=== PATIENT | female | born 1960 | race Caucasian/White ===

== ENCOUNTER 2019-03-13 11:57 | Emergency (ER) | payer OTHER ==
[2019-03-13 13:16] LABS: BASO % 0.5 % (0.0-2.0); EOS % 0.4 % (0.0-4.0); HEMOGLOBIN 13.6 g/dL (11.0-16.0); LYMPH # 1.9 K/uL (1.0-4.3); LYMPH % 28.1 % (20.0-40.0); MEAN CELL VOLUME 83.9 fL (81.0-99.0); MEAN CORPUSCULAR HEMOGLOBIN 28.2 pg (27.0-31.0); MEAN CORPUSCULAR HGB CONC 33.6 g/dL (33.0-37.0); MEAN PLATELET VOLUME 8.9 fL (7.2-11.7); MONO # 0.4 K/uL (0.0-0.8); MONO % 5.2 % (0.0-10.0); NEUT # 4.5 K/uL (1.8-7.0); NEUT % 65.8 % (50.0-75.0); RBC 4.83 Mil/uL (3.80-5.20); RED CELL DISTRIBUTION WIDTH 13.8 % (11.5-14.5); WHITE BLOOD COUNT 6.8 K/uL (4.8-10.8)
--- NOTE | 2019-03-13 13:19 | RAD ---
Date of service: 03/13/2019 PROCEDURE: CHEST RADIOGRAPH, 1 VIEW HISTORY: chest pain COMPARISON: None available. FINDINGS: LUNGS: The lungs are well inflated and clear. PLEURA: No pneumothorax or pleural effusion. CARDIOVASCULAR: The heart is normal in size. There are aortic atherosclerotic calcifications present. OSSEOUS STRUCTURES: Within normal limits for the patient's age. VISUALIZED UPPER ABDOMEN: Normal. OTHER FINDINGS: None. IMPRESSION: No active pulmonary disease.
[2019-03-13 14:57] LABS: ALB/GLOB RATIO 1.4 (1.0-2.1); ALBUMIN 4.4 g/dL (3.5-5.0); ALT/SGPT 36 U/L (9-52); AST/SGOT 33 U/L (14-36); BLOOD UREA NITROGEN 18 mg/dL (7-17); CALCIUM 9.5 mg/dl (8.6-10.4); GFR NON-AFRICAN AMERICAN > 60
[2019-03-13 15:06] VITALS: O2SAT 100
[2019-03-13 15:26] LABS: T3 1.58 nmol/L (1.49-2.60)
[2019-03-13 16:46] VITALS: BP 145/77; PULSE 68; RESP 18; TEMP 98
--- NOTE | 2019-03-13 17:17 | C.PDOC ---
History Of Present Illness 58-year-old female presents to the ED for evaluation of "neck spasms/palpitations" which began around one week ago. Patient states she is currently asymptomatic and denies fever, chills, chest pain, shortness of breath and cough. Chief Complaint (Nursing): Palpitations History Per: Patient History/Exam Limitations: no limitations Onset/Duration Of Symptoms: Hrs Current Symptoms Are (Timing): Still Present Past Medical History Reviewed: Historical Data, Nursing Documentation, Vital Signs Vital Signs: Last Vital Signs Temp 98.0 F 03/13/19 16:44 Pulse 68 03/13/19 16:44 Resp 18 03/13/19 16:44 BP 145/77 03/13/19 16:44 Pulse Ox 100 03/13/19 16:44 - Medical History PMH: No Chronic Diseases Surgical History: No Surg Hx Family History: States: Unknown Family Hx - Social History Hx Alcohol Use: No Hx Substance Use: No - Immunization History Hx Tetanus Toxoid Vaccination: No Hx Influenza Vaccination: No Hx Pneumococcal Vaccination: No Review Of Systems Constitutional: Positive for: Other (neck spasms/palpitations ). Negative for: Fever, Chills Cardiovascular: Negative for: Chest Pain Respiratory: Negative for: Cough, Shortness of Breath Physical Exam - Physical Exam Appears: Non-toxic, No Acute Distress Skin: Normal Color, Warm, Dry Head: Atraumatic, Normacephalic Eye(s): bilateral: Normal Inspection Oral Mucosa: Moist Neck: Normal ROM, No Midline Cervical Tenderness, No Paracervical Tenderness, Supple Chest: Symmetrical, No Deformity, No Tenderness Cardiovascular: Rhythm Regular, No Murmur Respiratory: Normal Breath Sounds, No Rales, No Rhonchi, No Wheezing Extremity: Normal ROM, Capillary Refill (less than 2 seconds ) Neurological/Psych: Oriented x3, Normal Speech, Normal Cognition ED Course And Treatment - Laboratory Results Result Diagrams: 03/13/19 13:04 03/13/19 14:38 Lab Results: Troponin I < 0.0120 ng/mL (0.00-0.120) 03/13/19 14:38 Total Bilirubin 0.3 mg/dL (0.2-1.3) 03/13/19 14:38 AST 33 U/L (14-36) 03/13/19 14:38 ALT 36 U/L (9-52) 03/13/19 14:38 Alkaline Phosphatase 84 U/L (38-126) 03/13/19 14:38 Total Protein 7.5 g/dL (6.3-8.3) 03/13/19 14:38 Albumin 4.4 g/dL (3.5-5.0) 03/13/19 14:38 Globulin 3.1 gm/dL (2.2-3.9) 03/13/19 14:38 Albumin/Globulin Ratio 1.4 (1.0-2.1) 03/13/19 14:38 ECG: Interpreted By Me, Viewed By Me ECG Rhythm: Sinus Rhythm Interpretation Of ECG: Normal Sinus Rhythm at rate 88bpm. Normal axis and intervals. Rate From EC O2 Sat by Pulse Oximetry: 100 (on RA) Pulse Ox Interpretation: Normal - Other Rad CXR X-Ray: Viewed By Me, Read By Radiologist Interpretation: Date of service: 03/13/2019. PROCEDURE: CHEST RADIOGRAPH, 1 VIEW. HISTORY: chest pain. COMPARISON: None available. FINDINGS: LUNGS: The lungs are well inflated and clear. PLEURA: No pneumothorax or pleural effusion. CARDIOVASCULAR: The heart is normal in size. There are aortic atherosclerotic calcifications present. OSSEOUS STRUCTURES: Within normal limits for the patient's age. VISUALIZED UPPER ABDOMEN: Normal. OTHER FINDINGS: None. IMPRESSION: No active pulmonary disease. Medical Decision Making Medical Decision Making: Impression: 58-year-old female with "neck spasms/palpitations" Plan: * Bloodwork * EKG * CXR * reassess and disposition Progress: Bloodwork, CXR, and EKG ordered and reviewed. Patient's son was called. He states that patient has become more nervous with similar symptoms since she was diagnosed as a pre-diabetic one week ago. Patient has been evaluated in other Emergency Rooms with similar complaint and has been released. On reassessment, patient is resting comfortably, showing no signs of distress and is stable for discharge. Patient is advised to follow-up with her PMD for possible psychological and/or psychiatric evaluation. Disposition - Disposition Referrals: Bill Alas, [Non-Staff] - Disposition: HOME/ ROUTINE Disposition Time: 15:10 Condition: IMPROVED Additional Instructions: ANASTASIYA PUENTE, thank you for letting us take care of you today. The emergency medical care you received today was directed at your acute symptoms. If you were prescribed any medication, please fill it and take as directed. It may take several days for your symptoms to resolve. Return to the Emergency De partment if your symptoms worsen, do not improve, or if you have any other problems. Please contact your doctor or call one of the physicians/clinics you have been referred to that are listed on the Patient Visit Information form that is included in your discharge packet. Bring any paperwork you were given at discharge with you along with any medications you are taking to your follow up visit. Our treatment cannot replace ongoing medical care by a primary care provider outside of the emergency department. Thank you for allowing the [facility] team to be part of your care today. Follow up with your primary care doctor in 2-3 days for re-evaluation and further management. Prescriptions: Ibuprofen [Motrin] 600 mg PO Q6 PRN #20 tab PRN Reason: Pain, Moderate (4-7) Instructions: Generalized Anxiety Disorder Forms: [employer] [facility] (Finnish) - Clinical Impression Clinical Impression: Anxiety - Scribe Statement The provider has reviewed the documentation as recorded by the Scribe (Malinda Stacy) Provider Attestation: All medical record entries made by the Scribe were at my direction and person ally dictated by me. I have reviewed the chart and agree that the record accurately reflects my personal performance of the history, physical exam, medical decision making, and the department course for this patient. I have also personally directed, reviewed, and agree with the discharge instructions and disposition.
--- NOTE | 2019-03-14 12:42 | CARD ---
APPROVED REPORT Date of service: 03/13/2019 EKG Measurement Heart [id number] <Conclusion> Normal sinus rhythm Cannot rule out Anterior infarct, age undetermined Abnormal ECG
== END 2019-03-13 16:47 | disposition home or self-care (01) ==
LOC: C.ER 11:57
DX: F41.9 Anxiety disorder, unspecified (principal); R73.03 Prediabetes